=== PATIENT | female | born 1960 | race Caucasian/White ===

== ENCOUNTER 2016-04-25 17:10 | Emergency (ER) | payer MEDICARE, OTHER ==
[2016-04-25 18:44] LABS: HEMOGLOBIN 11.8 gm/dl (12.3-15.3); RED BLOOD COUNT 4.13 M/UL (4.00-5.10); WHITE BLOOD COUNT 16.5 K/UL (4.5-11.0)
== END 2016-04-25 23:33 ==
LOC: ER1 17:10
PROVIDERS: Emergency Medicine
DX: K85.10 Biliary acute pancreatitis without necrosis or infection (principal); N39.0 Urinary tract infection, site not specified; K75.9 Inflammatory liver disease, unspecified; E80.6 Other disorders of bilirubin metabolism; Z88.0 Allergy status to penicillin; Z79.82 Long term (current) use of aspirin; Z79.899 Other long term (current) drug therapy
CPT/HCPCS: 36415; 74022; 80053; 81001; 83605; 83690; 84484; 85025; 85610; 85730; 87040; 96365; 96367; 96375; 99285; J0696; J2270; J2405; J7050; Q9962

== ENCOUNTER → 2016-07-25 | Outpatient (CLI) | payer MEDICARE, OTHER | LOC: SLEEP 14:20 | DX: G47.33 Obstructive sleep apnea (adult) (pediatric) (principal); F51.04 Psychophysiologic insomnia | CPT/HCPCS: 95810 ==

== ENCOUNTER → 2020-07-08 | Outpatient (CLI) | payer MEDICARE, OTHER | LOC: KOH-I 08:53 | DX: M25.572 Pain in left ankle and joints of left foot (principal) | CPT/HCPCS: 73610 ==